=== PATIENT | male | born 1940 | race Caucasian/White ===

== ENCOUNTER 2022-09-01 19:53 | Inpatient (IN) | payer OTHER ==
[2022-09-01 20:31] LABS: #Eosinphils 0.3 10x3/uL (0.0-0.5); #Monocytes 0.8 10x3/uL (0.0-1.1); #Neutrophils 8.6 10x3/uL (1.5-8.4); %Basophils 0.2 % (0.0-2.0); %Eosinophils 2.5 % (0.0-6.0); %Lymphocytes 8.9 % (18.0-47.0); %Monocytes 7.7 % (0.0-10.0); %Neutrophils 80.2 % (40.0-75.0); Hemoglobin 6.8 g/dL (13.5-17.5); Mean Corpuscular HGB CONC 31.9 g/dL (32.0-36.0); Mean Corpuscular Volume 81.3 fl (81.2-95.1); Platelet Count 336 10x3/uL (150-450); RBC Distribution Width 14.2 % (11.5-14.5); Red Blood Cell (RBC) Count 2.62 10x6/uL (4.32-5.72); White Blood Cell (WBC) Count 10.7 10x3/uL (3.5-10.5)
[2022-09-01 20:44] LABS: INR-International Normal Ratio 2.2; Prothrombin Time 22.5 sec (9.5-12.1)
[2022-09-01 20:51] LABS: ALT (SGPT) 19 U/L (8-55); AST (SGOT) 21 U/L (5-34); Albumin 3.6 g/dL (3.4-4.8); Alkaline Phosphatase 86 U/L (40-110); Anion Gap 18 mmol/L (10-20); BUN (Urea Nitrogen) 21 mg/dL (8.4-25.7); Bilirubin, Total 0.6 mg/dL (0.2-1.2); Calc. Creatinine Clearance 0 mL/min (70-130); Calcium 8.1 mg/dL (7.8-10.44); Carbon Dioxide 15 mmol/L (23-31); Chloride 108 mmol/L (98-107); Estimated GFR 58; Globulin 3.2 g/dL (2.4-3.5); Glucose 149 mg/dL (83-110); Iron 16 ug/dL (65-175); Iron Binding Capacity, Total 378 mcg/dL (261-462); Potassium 4.3 mmol/L (3.5-5.1); Protein, Total 6.8 g/dL (5.8-8.1); Sodium 137 mmol/L (136-145)
[2022-09-02] MEDS ORDERED: HYDROcodone/Acetaminophen 5/325 mg Tablet PO PRN (00:39)
[2022-09-02] MEDS ORDERED: Ondansetron PF 4 MG/2 ML Vial IVP PRN (00:39)
[2022-09-02] MEDS ORDERED: Zolpidem Tartrate 5 MG TAB PO PRN (00:39)
[2022-09-02] MEDS ORDERED: Acetaminophen 325 MG TAB PO PRN (00:39)
[2022-09-02] MEDS ORDERED: Pantoprazole 40 MG VIAL ONE (01:55)
[2022-09-02 02:22] VITALS: BMI 22.9
[2022-09-02] MEDS ORDERED: Phytonadione 10 MG/ML AMP PO SCH (02:45)
[2022-09-02] MEDS: Lactated Ringer's 1,000 ML IV SCH ×2 (04:03→08:39)
[2022-09-02 07:38] LABS: #Eosinphils 0.3 10x3/uL (0.0-0.5); #Monocytes 0.6 10x3/uL (0.0-1.1); #Neutrophils 6.6 10x3/uL (1.5-8.4); %Basophils 0.4 % (0.0-2.0); %Eosinophils 3.6 % (0.0-6.0); %Lymphocytes 7.6 % (18.0-47.0); %Monocytes 6.9 % (0.0-10.0); %Neutrophils 81.3 % (40.0-75.0); Hemoglobin 7.9 g/dL (13.5-17.5); Mean Corpuscular HGB CONC 32.9 g/dL (32.0-36.0); Mean Corpuscular Hemoglobin 26.8 pg (27.0-33.0); Mean Corpuscular Volume 81.4 fl (81.2-95.1); Mean Platelet Volume 10.1 fl (7.4-10.4); Platelet Count 277 10x3/uL (150-450); Red Blood Cell (RBC) Count 2.95 10x6/uL (4.32-5.72); White Blood Cell (WBC) Count 8.2 10x3/uL (3.5-10.5)
[2022-09-02 07:53] LABS: Anion Gap 12 mmol/L (10-20); BUN (Urea Nitrogen) 14 mg/dL (8.4-25.7); Calc. Creatinine Clearance 57 mL/min (70-130); Calcium 8.1 mg/dL (7.8-10.44); Carbon Dioxide 19 mmol/L (23-31); Chloride 110 mmol/L (98-107); Estimated GFR 70; Glucose 139 mg/dL (83-110); Potassium 4.1 mmol/L (3.5-5.1); Sodium 137 mmol/L (136-145)
[2022-09-02 08:03] LABS: INR-International Normal Ratio 2.2; PTT 37.5 sec (22.0-33.0); Prothrombin Time 22.4 sec (9.5-12.1)
[2022-09-02] MEDS: Losartan Potassium 50 MG TAB PO SCH (08:39)
[2022-09-02] MEDS: Metoprolol Tartrate 50 MG TAB PO SCH ×2 (08:39→21:37)
[2022-09-02] MEDS: Pantoprazole 40 MG VIAL IVP SCH ×2 (08:39→21:37)
[2022-09-02] MEDS: Lidocaine 5% Patch TD SCH (08:39)
[2022-09-02] MEDS: Amlodipine 10 MG TAB PO SCH (08:39)
[2022-09-02] MEDS ORDERED: Phytonadione 10 MG/ML AMP SLOW IVP SCH (09:00)
[2022-09-02] MEDS ORDERED: Phytonadione 10 MG in Sodium Chloride 0.9% 50 ML IVPB SCH (09:00)
[2022-09-02] MEDS ORDERED: Metoprolol Tartrate 25 MG TAB PO SCH (09:00)
[2022-09-02] MEDS ORDERED: EPINEPHrine 1 MG/10 ML Abboject SYRINGE ONE (09:52)
[2022-09-02] MEDS ORDERED: Lidocaine 2% PF 5 ML VIAL ONE (10:09)
[2022-09-02] MEDS ORDERED: PROPOFOL 20 ML ONE ×2 (10:09→11:04)
[2022-09-02] MEDS ORDERED: GoLYTELY 4,000 ml Bottle PO SCH (16:00)
[2022-09-02] MEDS ORDERED: Atorvastatin Calcium 10 MG TAB PO SCH (21:00)
[2022-09-02] MEDS: Atorvastatin Calcium 10 MG TAB PO SCH (21:38)
[2022-09-02] MEDS: Transdermal Patch Removal TOP SCH (21:51)
[2022-09-03] MEDS: Lactated Ringer's 1,000 ML IV SCH ×2 (05:54→17:20)
[2022-09-03 06:09] LABS: INR-International Normal Ratio 1.2; PTT 31.3 sec (22.0-33.0); Prothrombin Time 12.9 sec (9.5-12.1)
[2022-09-03] MEDS: Metoprolol Tartrate 50 MG TAB PO SCH ×2 (06:10→20:35)
[2022-09-03 06:12] LABS: Anion Gap 13 mmol/L (10-20); BUN (Urea Nitrogen) 9 mg/dL (8.4-25.7); Calc. Creatinine Clearance 60 mL/min (70-130); Calcium 8.2 mg/dL (7.8-10.44); Carbon Dioxide 21 mmol/L (23-31); Chloride 110 mmol/L (98-107); Estimated GFR 76; Glucose 144 mg/dL (83-110); Potassium 3.8 mmol/L (3.5-5.1); Sodium 140 mmol/L (136-145)
[2022-09-03] MEDS: Pantoprazole 40 MG VIAL IVP SCH (08:03)
[2022-09-03] MEDS: Lidocaine 5% Patch TD SCH (08:03)
[2022-09-03] MEDS: Losartan Potassium 50 MG TAB PO SCH (08:04)
[2022-09-03] MEDS: Amlodipine 10 MG TAB PO SCH (08:04)
[2022-09-03 09:04] LABS: #Eosinphils 0.5 10x3/uL (0.0-0.5); #Monocytes 0.7 10x3/uL (0.0-1.1); #Neutrophils 4.9 10x3/uL (1.5-8.4); %Basophils 0.6 % (0.0-2.0); %Eosinophils 7.7 % (0.0-6.0); %Lymphocytes 12.1 % (18.0-47.0); %Monocytes 9.3 % (0.0-10.0); Hemoglobin 7.3 g/dL (13.5-17.5); Mean Corpuscular HGB CONC 33.2 g/dL (32.0-36.0); Mean Corpuscular Hemoglobin 26.8 pg (27.0-33.0); Mean Corpuscular Volume 80.9 fl (81.2-95.1); Mean Platelet Volume 9.7 fl (7.4-10.4); Platelet Count 266 10x3/uL (150-450); RBC Distribution Width 14.2 % (11.5-14.5); Red Blood Cell (RBC) Count 2.72 10x6/uL (4.32-5.72)
[2022-09-03] MEDS ORDERED: PROPOFOL 40 ML ONE (13:01)
[2022-09-03 14:51] LABS: #Eosinphils 0.6 10x3/uL (0.0-0.5); #Monocytes 0.7 10x3/uL (0.0-1.1); #Neutrophils 4.5 10x3/uL (1.5-8.4); %Basophils 0.4 % (0.0-2.0); %Eosinophils 8.4 % (0.0-6.0); %Lymphocytes 16.1 % (18.0-47.0); %Monocytes 10.3 % (0.0-10.0); %Neutrophils 64.4 % (40.0-75.0); Hemoglobin 7.2 g/dL (13.5-17.5); Mean Corpuscular HGB CONC 32.9 g/dL (32.0-36.0); Mean Corpuscular Hemoglobin 26.6 pg (27.0-33.0); Mean Corpuscular Volume 80.8 fl (81.2-95.1); Mean Platelet Volume 9.6 fl (7.4-10.4); Platelet Count 259 10x3/uL (150-450); RBC Distribution Width 14.1 % (11.5-14.5); Red Blood Cell (RBC) Count 2.71 10x6/uL (4.32-5.72)
[2022-09-03] MEDS: Atorvastatin Calcium 10 MG TAB PO SCH (20:35)
[2022-09-03] MEDS: Transdermal Patch Removal TOP SCH (20:36)
[2022-09-03] MEDS ORDERED: Pantoprazole 40 MG VIAL IVP SCH (21:00)
[2022-09-03 21:56] LABS: #Eosinphils 0.5 10x3/uL (0.0-0.5); #Monocytes 0.7 10x3/uL (0.0-1.1); #Neutrophils 4.8 10x3/uL (1.5-8.4); %Basophils 0.6 % (0.0-2.0); %Eosinophils 7.7 % (0.0-6.0); %Lymphocytes 12.8 % (18.0-47.0); %Neutrophils 68.6 % (40.0-75.0); Hemoglobin 7.5 g/dL (13.5-17.5); Mean Corpuscular HGB CONC 32.9 g/dL (32.0-36.0); Mean Corpuscular Hemoglobin 26.6 pg (27.0-33.0); Mean Corpuscular Volume 80.9 fl (81.2-95.1); Mean Platelet Volume 9.7 fl (7.4-10.4); Platelet Count 278 10x3/uL (150-450); RBC Distribution Width 14.1 % (11.5-14.5); Red Blood Cell (RBC) Count 2.82 10x6/uL (4.32-5.72)
[2022-09-04] MEDS: Lactated Ringer's 1,000 ML IV SCH (04:40)
[2022-09-04 05:00] LABS: INR-International Normal Ratio 1.1; Prothrombin Time 11.4 sec (9.5-12.1)
[2022-09-04 05:02] LABS: Anion Gap 9 mmol/L (10-20); BUN (Urea Nitrogen) 9 mg/dL (8.4-25.7); Calc. Creatinine Clearance 62 mL/min (70-130); Calcium 8.4 mg/dL (7.8-10.44); Carbon Dioxide 22 mmol/L (23-31); Chloride 110 mmol/L (98-107); Estimated GFR 79; Glucose 137 mg/dL (83-110); Potassium 3.4 mmol/L (3.5-5.1); Sodium 138 mmol/L (136-145)
[2022-09-04 05:15] LABS: #Eosinphils 0.5 10x3/uL (0.0-0.5); #Monocytes 0.6 10x3/uL (0.0-1.1); #Neutrophils 4.3 10x3/uL (1.5-8.4); %Basophils 0.5 % (0.0-2.0); %Lymphocytes 14.2 % (18.0-47.0); %Monocytes 9.8 % (0.0-10.0); %Neutrophils 67.2 % (40.0-75.0); Hemoglobin 7.5 g/dL (13.5-17.5); Mean Corpuscular HGB CONC 32.3 g/dL (32.0-36.0); Mean Corpuscular Hemoglobin 26.5 pg (27.0-33.0); Mean Platelet Volume 10.1 fl (7.4-10.4); Platelet Count 280 10x3/uL (150-450); RBC Distribution Width 14.2 % (11.5-14.5); Red Blood Cell (RBC) Count 2.83 10x6/uL (4.32-5.72); White Blood Cell (WBC) Count 6.4 10x3/uL (3.5-10.5)
[2022-09-04] MEDS ORDERED: Ferrous Sulfate 325 MG TAB PO SCH (08:00)
[2022-09-04] MEDS: Lidocaine 5% Patch TD SCH (08:27)
[2022-09-04] MEDS: Losartan Potassium 50 MG TAB PO SCH (08:28)
[2022-09-04] MEDS: Metoprolol Tartrate 50 MG TAB PO SCH (08:28)
[2022-09-04] MEDS: Amlodipine 10 MG TAB PO SCH (08:28)
[2022-09-04 11:23] VITALS: BP 136/74; TEMP 98.2
== END 2022-09-04 12:23 | disposition home or self-care (01) | DRG 381 ==
LOC: CSHERS 19:53 → CSHTELE 09-02 02:19
PROVIDERS: ADMIT Student in an Organized Health Care Education/Training Program; ATTEND Internal Medicine
PROC: 0W3P8ZZ Control Bleeding in Gastrointestinal Tract, Via Natural or Artificial Opening Endoscopic (ICD-10-PCS; principal; 2022-09-02)
PROC: 30233N1 Transfusion of Nonautologous Red Blood Cells into Peripheral Vein, Percutaneous Approach (ICD-10-PCS; 2022-09-02)
PROC: 0DBK8ZZ Excision of Ascending Colon, Via Natural or Artificial Opening Endoscopic (ICD-10-PCS; 2022-09-03)
PROC: 0DBN8ZZ Excision of Sigmoid Colon, Via Natural or Artificial Opening Endoscopic (ICD-10-PCS; 2022-09-03)
DX: K22.11 Ulcer of esophagus with bleeding (principal); D62 Acute posthemorrhagic anemia; D68.32 Hemorrhagic disorder due to extrinsic circulating anticoagulants; I48.21 Permanent atrial fibrillation; E78.5 Hyperlipidemia, unspecified; I25.10 Atherosclerotic heart disease of native coronary artery without angina pectoris; T45.515A Adverse effect of anticoagulants, initial encounter; E11.22 Type 2 diabetes mellitus with diabetic chronic kidney disease; I12.9 Hypertensive chronic kidney disease with stage 1 through stage 4 chronic kidney disease, or unspecified chronic kidney disease; N18.9 Chronic kidney disease, unspecified; Z20.822 Contact with and (suspected) exposure to COVID-19; K74.60 Unspecified cirrhosis of liver; K80.20 Calculus of gallbladder without cholecystitis without obstruction; E87.6 Hypokalemia; K44.9 Diaphragmatic hernia without obstruction or gangrene; N28.89 Other specified disorders of kidney and ureter; K21.00 Gastro-esophageal reflux disease with esophagitis, without bleeding; K57.30 Diverticulosis of large intestine without perforation or abscess without bleeding; D12.5 Benign neoplasm of sigmoid colon; D12.2 Benign neoplasm of ascending colon; Z79.82 Long term (current) use of aspirin; Z79.01 Long term (current) use of anticoagulants; Z95.5 Presence of coronary angioplasty implant and graft; Z95.2 Presence of prosthetic heart valve; Z79.899 Other long term (current) drug therapy; Z98.890 Other specified postprocedural states; Z87.891 Personal history of nicotine dependence; Z82.49 Family history of ischemic heart disease and other diseases of the circulatory system
CPT/HCPCS: 36415; 36430; 74176; 80048; 80053; 82274; 82728; 83540; 83550; 85025; 85610; 85730; 86850; 86900; 86901; 88305; 93005; C9113; J0171; J2001; J2704; J3430; J7120; P9016; U0003; U0005

== ENCOUNTER 2022-11-13 22:12 | Emergency (ER) | payer OTHER | END 2022-11-13 23:49 | disposition home or self-care (01) | LOC: CSHERS 22:12 | DX: K94.23 Gastrostomy malfunction (principal); T83.028A Displacement of other urinary catheter, initial encounter; I10 Essential (primary) hypertension; E11.9 Type 2 diabetes mellitus without complications; Z79.01 Long term (current) use of anticoagulants; Z79.899 Other long term (current) drug therapy | CPT/HCPCS: 43762; 51702 ==